=== PATIENT | female | born 1950 ===

== ENCOUNTER → 2024-03-06 13:15 | Outpatient (REF) | payer BC, SELFPAY | LOC: RAD 13:15 | PROVIDERS: ATTENDING PHYSICIAN Radiology Diagnostic Radiology; FAMILY PHYSICIAN Nurse Practitioner Adult Health; OTHER PHYSICIAN Orthopaedic Surgery; REFERRING PHYSICIAN Internal Medicine Clinical Cardiac Electrophysiology | DX: M23.8X1 Other internal derangements of right knee (principal) | CPT/HCPCS: 71046; 73721 ==

== ENCOUNTER → 2025-08-25 15:12 | Outpatient (REF) | payer BC, SELFPAY ==
[2025-08-25 15:58] LABS: Hematocrit 34.0 % (37.0-47.0); Hemoglobin 10.7 g/dL (12.0-16.0); Mean Corp Hgb Conc. 31.5 g/dL (33.0-37.0); Mean Corpuscular Volume 99.7 fL (81.0-99.0); Nucleated Red Blood Cells % 0 %; Platelet Count 201 10^3/uL (130-400); Red Cell Dist. Width 15.2 % (11.5-14.5)
[2025-08-25 16:49] LABS: ALT (SGPT) 15 U/L (0-35); AST (SGOT) 24 U/L (14-36); Albumin 4.3 g/dl (3.5-5.0); Alkaline Phosphatase 78 U/L (38-126); Blood Urea Nitrogen 16 mg/dl (7-17); Calcium 9.0 mg/dl (8.4-10.2); Carbon Dioxide 19 mmol/L (22-30); Chloride 106 mmol/L (98-107); Glucose 127 mg/dl (70-99); Potassium 3.4 mmol/L (3.5-5.1); Sodium 136 mmol/L (135-145); eGFR > 60.00
[2025-08-25 16:53] LABS: Total Protein 6.6 g/dl (6.3-8.2)
== END ==
LOC: REG 15:12
PROVIDERS: ATTENDING PHYSICIAN Internal Medicine Cardiovascular Disease; FAMILY PHYSICIAN Nurse Practitioner Adult Health
DX: R06.02 Shortness of breath (principal); Z95.810 Presence of automatic (implantable) cardiac defibrillator; T82.110A Breakdown (mechanical) of cardiac electrode, initial encounter
CPT/HCPCS: 36415; 71046; 80053; 84443; 85025